=== PATIENT | male | born 1970 | race Caucasian/White ===

== ENCOUNTER 2019-04-19 06:56 | Emergency (ER) | payer MEDICARE, MEDICAID ==
[~2019-04-19] VITALS: Ht 170.2 cm; Wt 68.2 kg
[~2019-04-19 06:56] MED LIST: BENZ1TAB70 PO; HALO10TA3 PO
[2019-04-19] MEDS ORDERED: LEVO25TA9 PO (07:15)
[2019-04-19] MEDS ORDERED: DIVA-78 PO (07:15)
[2019-04-19 07:39] LABS: BASOPHILS % (AUTO) 0.7 % (0.0-2.0); EOSINOPHILS % (AUTO) 1.2 % (1.0-6.0); HEMATOCRIT 41.5 % (41-53); HEMOGLOBIN 13.8 g/dL (13.5-17.5); LYMPHOCYTES # (AUTO) 1.2 K/uL (1.0-4.8); LYMPHOCYTES % (AUTO) 31.6 % (22.0-44.0); MEAN CORPUSCULAR HGB CONC 33.2 G/dL (31.0-37.0); MEAN CORPUSCULAR VOLUME 93 fL (80-100); MONOCYTES # (AUTO) 0.4 K/uL (0.1-1.0); MONOCYTES % (AUTO) 10.6 % (2.0-9.0); NEUTROPHILS # (AUTO) 2.1 K/uL (1.8-7.7); NEUTROPHILS % (AUTO) 55.9 % (40.0-70.0); PLATELET COUNT (AUTO) 163 K/uL (150-450); RED BLOOD CELL COUNT(AUTO) 4.44 MIL/uL (4.50-5.90); RED CELL DISTRIBUTION WIDTH 13.7 % (11.5-14.5)
[2019-04-19 07:55] LABS: ANION GAP 10 mmol/L (8-16); CARBON DIOXIDE 24 mmol/L (22-29); CHLORIDE 98 mmol/L (98-107); CREATININE 1.32 mg/dL (0.60-1.30); GLOMERULAR FILTR. RATE CALC 58 mL/min (>60); GLUCOSE,RANDOM 90 mg/dL (70-110); POTASSIUM 4.1 mmol/L (3.5-5.1); SODIUM SERUM 132 mmol/L (136-145); UREA NITROGEN, BLOOD 15 mg/dL (7-18)
[2019-04-19 08:00] LABS: ALANINE AMINOTRANSFERASE 24 U/L (12-78); ALBUMIN 3.6 g/dL (3.4-5.0); ALKALINE PHOSPHATASE 53 U/L (46-116); ASPARTATE AMINOTRANSFERASE 19 U/L (15-37); BILIRUBIN,TOTAL 0.5 mg/dL (0.1-1.0); TOTAL PROTEIN, SERUM 6.9 g/dL (6.4-8.2)
[2019-04-19] MEDS ORDERED: OLAN10TA3 PO (08:58)
[2019-04-19] MEDS ORDERED: BISA10SU11 PR (08:58)
[2019-04-19] MEDS ORDERED: MOM30 PO (08:58)
[2019-04-19] MEDS ORDERED: FLUP10 PO (08:58)
[2019-04-19] MEDS ORDERED: OMEG-135 PO (08:58)
[2019-04-19] MEDS ORDERED: ACET-784 PO (08:58)
[2019-04-19] MEDS ORDERED: OLANZapine 5 MG TABLET PO ONE (09:00)
[2019-04-19] MEDS ORDERED: DIVALPROEX SODIUM 500 MG ER TABLET PO ONE (09:00)
[2019-04-19] MEDS ORDERED: LORazepam 2 MG TABLET PO ONE (09:00)
[2019-04-19] MEDS ORDERED: FluPHENAZine HCL 5 MG TABLET PO ONE (09:00)
[2019-04-19 09:13] LABS: AMPHET/METH SCREEN,URINE NEGATIVE (NEGATIVE); BARBITURATE SCREEN, URINE NEGATIVE (NEGATIVE); BENZODIAZEPINES SCREEN,URINE NEGATIVE (NEGATIVE); CANNABINOID SCREEN,URINE NEGATIVE (NEGATIVE); COCAINE SCREEN,URINE NEGATIVE (NEGATIVE); METHADONE SCREEN, URINE NEGATIVE (NEGATIVE); OPIATE SCREEN,URINE NEGATIVE (NEGATIVE); PHENCYCLIDINE SCREEN,URINE NEGATIVE (NEGATIVE)
[2019-04-19] MEDS ORDERED: FluPHENAZine HCL 10 MG TABLET PO ONE (09:30)
[2019-04-19 10:22] VITALS: BP 133/84
== END 2019-04-19 11:28 | disposition home or self-care (01) ==
LOC: EMS 07:02
DX: F20.9 Schizophrenia, unspecified (principal); I10 Essential (primary) hypertension; G43.909 Migraine, unspecified, not intractable, without status migrainosus; J45.909 Unspecified asthma, uncomplicated; F17.210 Nicotine dependence, cigarettes, uncomplicated; Z79.899 Other long term (current) drug therapy; Z88.8 Allergy status to other drugs, medicaments and biological substances
CPT/HCPCS: 36415; 80053; 80307; 85025; 99284; 99406; G0480